=== PATIENT | male | born 1990 | race Caucasian/White ===

== ENCOUNTER 2018-09-19 10:56 | Day surgery (SDC) | payer OTHER ==
[2018-09-19] MEDS ORDERED: cefTRIAXone 2 GM VIAL ONE (11:22)
[2018-09-19] MEDS ORDERED: LACTATED RINGERS 1,000 ML IV ONE ×2 (11:43→15:42)
--- NOTE | 2018-09-19 11:54 | ANESTHESIA ---
Pre-Anesthesia VS, & Labs - NPO >8 hours Last Fluid Intake: sips H20 with meds at 08 <CiroEli roqueane - Last Filed: 09/19/18 11:49> - Diagnosis L clavicle fx (CiroEnid roque) - Procedure ORIF L clavicle (Enid Tanner) Vital Signs: Temp Pulse Resp BP Pulse Ox 37.0 C 71 18 135/72 H 97 09/19/18 11:39 09/19/18 11:39 09/19/18 11:39 09/19/18 11:39 09/19/18 11:39 Height 5 ft 9 in Weight (kg) 79.7 kg Home Medications and Allergies <Enid Tanner - Last Filed: 09/19/18 11:49> <Jcarlos Arechiga - Last Filed: 09/19/18 12:10> Home Medications: Ambulatory Orders HYDROcod/ACETAM 5/325 [[place] 5/325] 1 - 2 ea PO Q6H PRN 09/17/18 HYDROcod/ACETAM 5/325 [[place] 5/325] 1 - 2 ea PO Q6H PRN 09/17/18 Allergies/Adverse Reactions: Allergies Allergy/AdvReac Type Severity Reaction Status Date / Time No Known Drug Allergies Allergy Verified 09/17/18 15:09 Anes History & Medical History - Anesthetic History Anesthesia Complications: reports: No previous complications Family history of Anesthesia Complications: Denies Family history of Malignant Hyperthermia: Denies - Medical History Cardiovascular: reports: None Gastrointestinal: reports: None Urinary: reports: None Musculoskeletal: reports: Other Skin: reports: None - Surgical History Orthopedic: Other <CiroEnid - Last Filed: 09/19/18 11:49> - Anesthetic History Anesthesia Complications: reports: No previous complications Family history of Anesthesia Complications: Denies Family history of Malignant Hyperthermia: Denies - Medical History Cardiovascular: reports: None Gastrointestinal: reports: None Urinary: reports: None Musculoskeletal: reports: Other Skin: reports: None Psychosocial: reports: Substance abuse (chewing tobacco) - Surgical History Orthopedic: Other <Jcarlos Arechiga P - Last Filed: 09/19/18 12:10> Exam General: Alert, Oriented x3, Cooperative Dental: WNL Mouth Openin Fingerbreadth Neck Mobility: Normal Mallampati classification: II Thyromental Distance: 4-6 cm Respiratory: Lungs clear Cardiovascular: Regular rate Neurological: Normal speech Mental/Cognitive Status: Alert/Oriented X3, Normal for patient Cognitive Status: Within normal limits <Enid Tanner - Last Filed: 09/19/18 11:49> General: Alert, Oriented x3, Cooperative Dental: WNL Mouth Openin Fingerbreadth Neck Mobility: Normal Mallampati classification: II Thyromental Distance: 4-6 cm Respiratory: Lungs clear, Normal breath sounds, No respiratory distress Cardiovascular: Regular rate Neurological: Normal speech Mental/Cognitive Status: Alert/Oriented X3, Normal for patient Cognitive Status: Within normal limits <Jcarlos Arechiga P - Last Filed: 09/19/18 12:10> Plan Anesthesia Type: General Consent for Procedure(s) Verified and Reviewed: Yes Code Status: Attempt Resuscitation ASA classification: 2-Mild systemic disease Is this case an emergency?: No <Enid Tanner - Last Filed: 09/19/18 11:49> Anesthesia Type: General Consent for Procedure(s) Verified and Reviewed: Yes Code Status: Attempt Resuscitation ASA classification: 2-Mild systemic disease Is this case an emergency?: No <Jcarlos Arechiga P - Last Filed: 09/19/18 12:10>
[2018-09-19] MEDS ORDERED: BUPIVACAINE 0.25%-EPI 1:200000 PF 30 ML VIAL ONE (12:19)
[2018-09-19] MEDS ORDERED: BUPIVACAINE 0.25%-EPI 1:200000 PF 30 ML VIAL SUBQ ONE (13:20)
[2018-09-19] MEDS ORDERED: BUPIVACAINE 0.25% PF 30 ML VIAL ONE (13:22)
[2018-09-19] MEDS ORDERED: LIDOCAINE-MPF 2% 5 ML VIAL IM ONE (13:30)
[2018-09-19] MEDS ORDERED: PROPOFOL 200 MG/20 ML VIAL IVP ONE (13:30)
[2018-09-19] MEDS ORDERED: ROCURONIUM 50 MG/5 ML VIAL IVP ONE (13:30)
[2018-09-19] MEDS ORDERED: KETOROLAC 30 MG/ML VIAL IVP ONE (13:30)
[2018-09-19] MEDS ORDERED: ONDANSETRON 4 MG/2 ML VIAL IVP ONE (13:30)
[2018-09-19] MEDS ORDERED: ACETAMINOPHEN 1,000 MG/100 ML 100 ML IV ONE (13:30)
[2018-09-19] MEDS ORDERED: MORPHINE 10 MG/ML VIAL IVP ONE (13:30)
--- NOTE | 2018-09-19 15:25 | XRAY Report ---
Reason: fx clavicle Procedure Date: 09/19/2018 Accession Number: [id number] / [id number] Procedure: [place] - OR C-Arm Procedure CPT Code: FULL RESULT: EXAM: FLUOROSCOPIC GUIDANCE EXAM DATE: 09/19/2018 02:01 PM. CLINICAL HISTORY: Fractured clavicle. COMPARISON: OR C-ARM PROCEDURE 09/19/2018 2:00 PM. FINDINGS: Images documenting operative fixation of a left clavicle fracture are submitted with initial localization and positioning by Rose Marie wires with placement of a plate followed by fixation with multiple screws, final image demonstrates expected overall configuration securing the clavicle fracture as seen. Exact positioning of screws related to the bone stock cannot be confidently determined on single projection images. IMPRESSION: Fluoroscopic guidance provided for operative fixation of clavicle fracture. Total fluoroscopy time: 0.1 minutes. Number of images: 4. RADIA
--- NOTE | 2018-09-19 15:26 | XRAY Report ---
Reason: FX CLAVICLE Procedure Date: 09/19/2018 Accession Number: [id number] / [id number] Procedure: XR - Clavicle LT CPT Code: FULL RESULT: EXAM: FLUOROSCOPIC GUIDANCE EXAM DATE: 09/19/2018 02:01 PM. CLINICAL HISTORY: Fractured clavicle. COMPARISON: OR C-ARM PROCEDURE 09/19/2018 2:00 PM. FINDINGS: Images documenting operative fixation of a left clavicle fracture are submitted with initial localization and positioning by Rose Marie wires with placement of a plate followed by fixation with multiple screws, final image demonstrates expected overall configuration securing the clavicle fracture as seen. Exact positioning of screws related to the bone stock cannot be confidently determined on single projection images. IMPRESSION: Fluoroscopic guidance provided for operative fixation of clavicle fracture. Total fluoroscopy time: 0.1 minutes. Number of images: 4. RADIA
[2018-09-19] MEDS ORDERED: ONDANSETRON 4 MG/2 ML VIAL IVP PRN (15:27)
[2018-09-19] MEDS ORDERED: oxyCODONE 5 MG TABLET PO PRN (15:27)
[2018-09-19] MEDS ORDERED: ONDANSETRON 4 MG/2 ML VIAL ONE (15:38)
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
[2018-09-19] MEDS ORDERED: HYDROmorphone 1 MG/ML CARPUJECT ONE (16:09)
[2018-09-19 17:38] VITALS: BP 133/75
== END 2018-09-19 10:57 | disposition home or self-care (01) ==
LOC: SDS 10:56 → EDBD 12:45
PROVIDERS: ATTEND Orthopaedic Surgery
PROC: 0PSB04Z Reposition Left Clavicle with Internal Fixation Device, Open Approach (ICD-10-PCS; principal; 2018-09-19 12:45)
DX: S42.022A Displaced fracture of shaft of left clavicle, initial encounter for closed fracture (principal); S00.81XA Abrasion of other part of head, initial encounter; S80.812A Abrasion, left lower leg, initial encounter; S80.811A Abrasion, right lower leg, initial encounter; F17.220 Nicotine dependence, chewing tobacco, uncomplicated; V18.0XXA Pedal cycle driver injured in noncollision transport accident in nontraffic accident, initial encounter; Y93.55 Activity, bike riding; Y92.9 Unspecified place or not applicable; Y99.8 Other external cause status
CPT/HCPCS: 23515; 73000; C1713; J0131; J1170; J7120